=== PATIENT | male | born 2000 | race Two or more races ===

== ENCOUNTER 2025-01-31 11:56 | Emergency (ER) | payer OTHER, SELFPAY ==
[2025-01-31 12:01] VITALS: BP 142/79; PULSE 93; RESP 18; TEMP 36.9; O2SAT 100
--- NOTE | 2025-01-31 14:46 | ED_ITS ---
HPI - General Adult General Chief complaint: Upper Respiratory Infection Stated complaint: dont feel good Time Seen by Provider: 01/31/25 14:16 Source: patient Mode of arrival: ambulatory Limitations: other (Burkinan as second language but adequate fluency) History of Present Illness HPI narrative: Patient presents with report not feeling well. He has headache and been dizzy as well tired for approximately 1 week. Denies any slurred speech or unilateral symptoms. He also reports that he has had weight gain over the past 2 years. He states that he used to be 180-190 lb but more recently has been 200 lb. He does not have a primary care physician. He has not been seen recently/previously for these issues. He has not trialed any medications at home including no [id number] medications. Reports that he has pressure in his ears but otherwise denies any pain. When asked if he has had any rhinorrhea, he seems to indicate that he has had some but then states not really. He denies any trauma. He is not on anticoagulation. In regards to the headache there is mild photophobia. He is also experiencing phonophobia. Headache is across his bilateral forehead. No fevers or chills. No cough, shortness of breath, or diarrhea. He denies any vision changes including no blurred or double vision. He lives with his who is not experiencing any similar symptoms. Feels like there is a heaviness in his stomach after eating, but no nausea/vomiting. Related Data Allergies Allergy/AdvReac Type Severity Reaction Status Date / Time No Known Allergies Allergy Verified 01/31/25 14:25 FORMERLY [facility], [facility] Past Medical History Medical History Chronic nonallergic rhinitis Chronic eustachian tube dysfunction Social History Social History Smoking packs per day: 0 Smoking cigarettes per day: 0.0 Smoking status: Never smoker Second hand tobacco smoke exposure: No Alcohol intake: never Substance use: never Lack of Food: Often True Current Housing: Decline to Answer Concerned About Future Housing: No Difficulty Paying Gas/Electric Bills: No Difficulty Paying for Meds: No Currently Unemployed: No Education: Don't Know Difficulty w/ Childcare or Family Care: No Living arrangements: with family Additional living arrangements comments: Exam Narrative: GENERAL: Well-appearing, well-nourished, and in no acute distress. HEAD: Normocephalic, atraumatic. EYES: Non injected, non icteric; PERRL, approximately 3mm bilaterally. No horizontal or vertical nystagmus ENT: No rhinorrhea or epistaxis. Cerumen bilaterally but without impaction. Tympanic membranes able to be visualized and without any bulging, erythema effusion NECK: Supple. CHEST: Speaking in full sentences. No respiratory distress. HEART: Regular rate and rhythm. . ABDOMEN: Soft, nondistended. EXTREMITIES: Normal range of motion. No lower extremity edema. SKIN: Warm, dry, no rash. NEURO: No focal deficits. Alert and oriented x3. Speaks clearly without aphasia or dysarthria. Patient has a slightly asymmetric smile however no loss of the nasolabial fold. Sensation intact and symmetric in bilateral upper and lower extremities. PSYCH: Normal mood and affect. Course Vital Signs Vital signs: Vital Signs Temperature 98.5 F 01/31/25 12:01 Pulse Rate 93 01/31/25 12:01 Respiratory Rate 18 01/31/25 12:01 Blood Pressure 142/79 H 01/31/25 12:01 Pulse Oximetry 100 01/31/25 12:01 Oxygen Delivery Room Air 01/31/25 12:01 Temperature 98.5 F 01/31/25 12:01 Pulse Rate 80 01/31/25 16:56 Respiratory Rate 17 01/31/25 16:56 Blood Pressure 142/80 H 01/31/25 16:56 Pulse Oximetry 100 01/31/25 16:56 Oxygen Delivery Room Air 01/31/25 14:26 Medical Decision Making [facility] Narrative Medical decision making narrative: Patient presents with report of headache, dizziness, and tiredness/fatigue for approximately 1 week. In the emergency department he is afebrile with acceptable vital signs, only mild elevation of systolic blood pressure. Patient reports weight gain but has been approximately 10 lb over the course of 2 years. He also notes that he feels like his stomach is heavy after eating but denies any nausea/vomiting and no report of early satiety. After obtaining the patient's history and performing a physical exam, the headache is most likely due to benign etiology. The extensive neurological examination is non-focal, there are no high-risk features on history, vital signs are stable, and the patient is non-toxic appearing. The Ddx for the patient's headache is tension headache, migraine, or other headache of non-em ergent etiology. Unlikely SAH: headache is non-thunderclap. Headache is gradual, non-maximal Unlikely subdural/epidural hematoma: no history of trauma, no anticoagulation Unlikely meningitis: afebrile, no meningismus, mild photophobia Unlikely temporal arteritis: pt <60 years old. PERRL. Unlikely acute angle glaucoma: no eye pain, N/V PERRL Unlikely carbon monoxide poisoning: no other house members with similar symptoms The patient's headache was treated symptomatically with acetaminophen initially given the fact that he has not taken any medications at home prior to arrival. POC glucose acceptable; will defer further labs or imaging. Viral swab negative. Upon reevaluation at approximately 3:40 p.m., he states his headache is better states that in fact headache has not been the predominant symptom. He states that it is the intermittent dizziness that bothers him more. He notes that these spells are episodic, sometimes when he turns his head, sometimes when laughing. Will treat this dizziness initially with first line medication meclizine given component of head position change. No nystagmus on exam. Patient reassessed at 4:25 a.m. and he states dizziness resolved. States when he saw ENT and was prescribed loratidine for 1-2 weeks, it helped very little. He notes sinus pressure but no fevers/chills. He will be discharged with strict return precautions and instructions to follow up with a PCP; given that he does not have 1 a referral/contact information is provided for a doctor. Prescribed meclizine as well as short course of oxymetolazone. He is also prescribed short course of [id number] analgesics medication. Differential Diagnosis Differential Diagnosis: Acute viral syndrome, considered new onset diabetes Medical Records Medical records reviewed: Yes I reviewed the external patient's medical records. Medical records narrative: Patient saw virtual recruiter per review of the EMR in 2022 for similar issues and was diagnosed with chronic eustachian tube dysfunction and prescribed loratadine at that time Vital Signs Vital Signs: Vital Signs Temperature 98.5 F 01/31/25 12:01 Pulse Rate 93 01/31/25 12:01 Respiratory Rate 18 01/31/25 12:01 Blood Pressure 142/79 H 01/31/25 12:01 Pulse Oximetry 100 01/31/25 12:01 Oxygen Delivery Room Air 01/31/25 12:01 Temperature 98.5 F 01/31/25 12:01 Pulse Rate 80 01/31/25 16:56 Respiratory Rate 17 01/31/25 16:56 Blood Pressure 142/80 H 01/31/25 16:56 Pulse Oximetry 100 01/31/25 16:56 Oxygen Delivery Room Air 01/31/25 14:26 Lab Data Lab results reviewed: Yes I reviewed the patient's lab results. Labs: Lab Results 01/31/25 01/31/25 Range/Units 14:24 15:07 POC Capillary Glucose 94 (65-105) mg/dl Influenza A (RT-PCR) Negative (Negative) Influenza B (RT-PCR) Negative (Negative) RSV (RT-PCR) Negative (Negative) SARS-CoV-2 RNA (RT-PCR) Negative (Negative) Discharge Plan Discharge Clinical Impression: Dizziness, Headache Patient Disposition: Home Condition: Stable Instructions: Antibiotic Form, Benign Paroxysmal Positional Vertigo (DC), Dizziness (ED), General Headache (ED) Additional Instructions: As we discussed, your dizziness may be due to BPPV given preceded by head position occasionally. Meclizine is prescribed which helped in the ED. given the nasal congestion, you are also being prescribed a nasal spray you can trial. Given the weight gain and other chronic issues were concerned about, it is important that you follow-up with primary care physician. Because you do not have 1 the name of doctors listed below. Return to the emergency department any new or worsening symptoms. Acetaminophen/Tylenol (maximum 4000 mg per day) is safe to take with NSAIDs (ibuprofen/Motrin) for pain relief. Patient Language: Burkinan Prescriptions: New meclizine 25 mg tablet,chewable 25 mg PO DAILY PRN (Reason: dizziness) Qty: 30 0RF Afrin (oxymetazoline) 0.05 % mist 2 spray intranasal Q12H PRN (Reason: nasal congestion) 5 Days Qty: 15 0RF Rx Instructions: use for no more than 5 days acetaminophen 500 mg capsule 1,000 mg PO Q6H PRN (Reason: pain) Qty: 20 0RF ibuprofen 600 mg tablet 600 mg PO TID PRN (Reason: pain) Qty: 20 0RF No Action loratadine [Claritin] 10 mg tablet 10 mg PO DAILY Qty: 30 5RF Follow-up/Referrals: PHYSICIAN,SUPPLY CHAIN BUYER [Primary Care Provider] - Susie Allan DO [Physician] - Stand Alone Forms: Work/School Release IP Time of Disposition: 16:31
[2025-01-31 15:09] LABS: Glucose Point of Care 94 mg/dl (65-105)
[2025-01-31] MEDS: ACETAMINOPHEN 500 MG TABLET 1000 MG PO (15:11)
[2025-01-31 15:39] LABS: Influenza A QL RT-PCR Negative (Negative); Influenza B QL RT-PCR Negative (Negative); RSV RNA, RT-PCR Negative (Negative); SARS-CoV-2 RNA PCR Negative (Negative)
[2025-01-31] MEDS: MECLIZINE HCL 25 MG TABLET PO (15:58)
[2025-01-31 16:56] VITALS: BP 142/80; PULSE 80; RESP 17; O2SAT 100
== END 2025-01-31 16:57 | disposition home or self-care (01) ==
PROVIDERS: Emergency Provider Student in an Organized Health Care Education/Training Program
DX: R42 Dizziness and giddiness (principal); R51.9 Headache, unspecified; Z20.822 Contact with and (suspected) exposure to COVID-19
CPT/HCPCS: 82948; 87637; 99283; A9270